=== PATIENT | female | born 1970 | race Caucasian/White ===

== ENCOUNTER 2023-08-18 12:33 | Emergency (ER) | payer OTHER ==
[~2023-08-18] VITALS: Ht 167.6 cm; Wt 69.0 kg
[2023-08-18 12:35] VITALS: BP 118/67; PULSE 76; RESP 16; TEMP 98.2; O2SAT 99
[2023-08-18] MEDS ORDERED: HYDR-3992 MT (12:55)
== END 2023-08-18 15:59 | disposition home or self-care (01) ==
LOC: ER 12:58
DX: Z00.00 Encounter for general adult medical examination without abnormal findings (principal); Z59.00 Homelessness unspecified; F12.10 Cannabis abuse, uncomplicated; Z76.0 Encounter for issue of repeat prescription; Z88.6 Allergy status to analgesic agent; Z88.0 Allergy status to penicillin; Z86.59 Personal history of other mental and behavioral disorders
CPT/HCPCS: 99283